=== PATIENT | female | born 1995 | race Caucasian/White ===

== ENCOUNTER 2017-09-16 10:51 | Outpatient (CLI) | END 2017-09-16 14:00 | disposition home or self-care (01) ==

== ENCOUNTER 2017-11-16 17:34 | Outpatient (CLI) | END 2017-11-16 22:20 | disposition home or self-care (01) ==

== ENCOUNTER 2017-11-27 10:09 | Outpatient (CLI) | END 2017-11-27 13:50 | disposition home or self-care (01) ==

== ENCOUNTER 2017-12-01 23:25 | Inpatient (IN) | END 2017-12-04 14:30 | disposition home or self-care (01) | DRG 775 ==